=== PATIENT | female | born 1965 | race Caucasian/White ===

== ENCOUNTER 2020-08-04 17:33 | Emergency (ER) | payer SELFPAY ==
[2020-08-04 17:35] VITALS: BP 88/75; PULSE 111; RESP 18; TEMP 36.4; O2SAT 100; BMI 28.3
--- NOTE | 2020-08-04 17:45 | ED_ITS ---
HPI - Skin/Abscess/Foreign Bdy General: Chief complaint: Skin/Abscess/Foreign Body Stated complaint: L FOOT INJURY/INFECTION Time Seen by Provider: 08/04/20 17:35 History of Present Illness: HPI narrative: Patient is a 54-year-old female comes to the ED with possible infection on left foot. Patient says 4 days ago she had a blister on the top of her left foot around the midfoot region. She says she popped it and over the past 4 days her foot has gotten red, warm and swollen. Last night where the blister was on her foot opened up and purulent drainage came out. She rates the pain a 6 out of 10. Denies any history of staph or MRSA infections. Associated symptoms: Deny chills, fever(s), nausea or vomiting Review of Systems Const: Denies: fever(s), chills or fatigue Eyes: Denies: change in vision or eye discomfort ENMT: Denies: throat pain, odynophagia, nasal discharge or nasal congestion Card: Denies: chest pain, palpitations, edema, swelling of feet/ankles, dyspnea on exertion or orthopnea Resp: Denies: dyspnea, productive cough or non-productive cough GI: Denies: abdominal pain, nausea, vomiting, diarrhea, constipation or hematochezia : Denies: flank pain, dysuria or hematuria Musc: Denies: neck pain, back pain or extremity swelling Skin/Breast: Reports: erythema and new lesions; Denies: rash Neuro: Denies: headache(s), numbness in extremities or weakness in extremities Physical Exam Const: COMMON NORMALS: no acute distress, patient oriented x3 and alert GENERAL APPEARANCE: cooperative and comfortable HENMT: COMMON NORMALS: normocephalic HEAD & SCALP: normocephalic MOUTH: Normal oral and palatal mucosa present THROAT: posterior oropharynx normal and uvula midline Eye: COMMON NORMALS: Equal, round and reactive pupils present PUPIL: Yes Equal, round and reactive pupils present Neck/C-Spine: COMMON NORMALS: supple GENERAL: Yes normal visual inspection Resp: COMMON NORMALS: normal respiratory effort, No retractions, No use of accessory muscles and clear to auscultation bilaterally AUSCULTATION: clear to auscultation bilaterally Cardio: COMMON NORMALS: regular rate, regular rhythm, S1 normal heart sound present, S2 normal heart sound present, No gallops present (Cardio), No clicks present (Cardio), No murmurs present (Cardio) and Peripheral pulses 2+ throughout RATE: regular rate RHYTHM: regular rhythm HEART SOUNDS: S1 normal heart sound present and S2 normal heart sound present PERIPHERAL PULSES: Peripheral pulses 2+ throughout GI: COMMON NORMALS: Normal to inspection, nondistended, normoactive bowel sounds present, Soft to palpation, non-tender and no masses PALPATION: Yes Soft to palpation : COMMON NORMALS: Yes no CVA tenderness BLADDER/KIDNEY EXAM: Yes no CVA tenderness Back/Pelvis: COMMON NORMALS: no CVA tenderness Extremity: NARRATIVE EXTREMITY EXAM: Left foot?on the mid dorsal aspect of left foot patient has a small 5 mm ulcer with surrounding erythema and warmth. Left foot also has 1+ pitting edema in it. Lesion is tender to palpation. Findings suggestive of cellulitis GENERAL: Yes edema (Right foot no edema present. Left foot has 1+ pitting edema.) Neuro: COMMON NORMALS: patient oriented x3 and moves all extremities SENSORIUM/ORIENTATION: Yes alert Skin: NARRATIVE SKIN EXAM: Left foot?on the mid dorsal aspect of left foot patient has a small 5 mm ulcer with surrounding erythema and warmth. Left foot also has 1+ pitting edema in it. Lesion is tender to palpation. Findings suggestive of cellulitis GENERAL SKIN EXAM: dry skin Course Vital Signs: Vital signs: Vital Signs Temperature 97.6 F 08/04/20 17:35 Pulse Rate 101 H 08/04/20 18:08 Respiratory Rate 18 08/04/20 18:08 Blood Pressure 104/76 08/04/20 18:08 Pulse Oximetry 99 08/04/20 18:08 MDM - Skin/Abscess/Foreign Bdy MDM Narrative: Medical decision making narrative: Patient is a 54-year-old female comes the ED with lesion on left foot. Exam shows signs of cellulitis on dorsal aspect of mid left foot. Patient will be discharged on Bactrim and told to follow-up with PCP to reevaluate cellulitis in 5 to 7 days. Return to ED precautions given. Patient understood and agreed with plan. Discharge Plan Discharge Patient Disposition: Home Clinical Impression: Cellulitis Qualifiers: Site of cellulitis: extremity Site of cellulitis of extremity: lower extremity Laterality: left Qualified Code(s): L03.116 - Cellulitis of left lower limb Condition: Stable Prescriptions: New Bactrim DS 800-160 mg tablet 1 tab PO BID 7 Days Qty: 14 RF: 0 Discharge Orders: Discharge ED (Routine); Ordered 08/04/20 Ordered By: Luan Godinez Referrals: Cale Zuñiga MD [Primary Care Provider] - Discharge Diet: Regular Discharge Activity: Resume usual activity Patient Instructions: Cellulitis (ED) Activity Restrictions/Additional Instructions: Follow-up with medical provider as directed in about 7 days. Take medications as prescribed. Return to the ER or your medical provider if condition worsens. Please read and understand discharge instructions. If any questions, please ask. Coding Level of Care Code ED Floor Covering Printer for Raúl Fwd Exam Comprehensive
[2020-08-04] MEDS: sulfamethoxazole-trimeth DS 160-800 mg Tablet 1 TAB PO (18:03)
[2020-08-04 18:08] VITALS: BP 104/76; PULSE 101; RESP 18; O2SAT 99
== END 2020-08-04 18:08 | disposition home or self-care (01) ==
PROVIDERS: Emergency Provider Physician Assistant; PCP Family Medicine
DX: L03.116 Cellulitis of left lower limb (principal)
CPT/HCPCS: 12345; 99281; 99283

== ENCOUNTER → 2023-08-02 11:52 | Outpatient (BNVA) | payer SELFPAY | PROVIDERS: PCP Family Medicine; Visit Provider Registered Nurse Neonatal Intensive Care | DX: M54.50 Low back pain, unspecified (principal) | CPT/HCPCS: 81000 ==

== ENCOUNTER 2023-08-19 11:18 | Inpatient (IN) | payer SELFPAY ==
[2023-08-19] VITALS (19 sets, daily range): BP systolic 96–153; BP diastolic 36–79; PULSE 74–102; RESP 16–18; TEMP 36.6–37; O2SAT 96–100; BMI 27.4; BMI 25.7
--- NOTE | 2023-08-19 11:40 | XRR_ITS ---
PROCEDURE INFORMATION: Exam: XR Chest Exam date and time: 08/19/2023 11:44 AM Age: 57 years old Clinical indication: Other: AMS TECHNIQUE: Imaging protocol: Radiologic exam of the chest. Views: 1 view. COMPARISON: No relevant prior studies available. FINDINGS: Lungs: Unremarkable. No consolidation. Pleural spaces: Unremarkable. No pleural effusion. No pneumothorax. Heart/Mediastinum: Unremarkable. No cardiomegaly. Bones/joints: Unremarkable. XR/XR chest 1V portable [id number] IMPRESSION: No acute findings.
--- NOTE | 2023-08-19 11:40 | ECG_ITS ---
[facility] Test Date: 2023-08-19 Pat Name: Ioana Carrizales Department: Room: Gender: Female Assistant General Manager: : 1965 Requested By: Maria C Mcduffie Order Number: [id number] Kaylyn MD: George Singh M.D. Measurements Intervals [place] Rate: 89 P: 61 ID: [id number] QRS: 71 QRSD: 91 T: 34 QT: 295 QTc: 360 Interpretive Statements SINUS RHYTHM ST DEVIATION AND MODERATE T-WAVE ABNORMALITY, CONSIDER ANTEROLATERAL ISCHEMIA [-0.1+ mV T-WAVE IN V3-V6] No previous ECG available for comparison Electronically Signed On 08-19-2023 12:36:50 GLASS SILVERER by George Singh M.D. [id number]
--- NOTE | 2023-08-19 11:44 | CTR_ITS ---
PROCEDURE INFORMATION: Exam: CT Head Without Contrast Exam date and time: 08/19/2023 12:17 PM Age: 57 years old Clinical indication: Altered mental status/memory loss; Additional info: AMS TECHNIQUE: Imaging protocol: Computed tomography of the head without contrast. Radiation optimization: All CT scans at this facility use at least one of these dose optimization techniques: automated exposure control; mA and/or kV adjustment per patient size (includes targeted exams where dose is matched to clinical indication); or iterative reconstruction. REPORTING DATA: Count of CT and Cardiac NM exams in prior 12 months: This patient has received 0 known CTs and 0 known cardiac nuclear medicine studies in the 12 months prior to the current study. COMPARISON: No relevant prior studies available. RADIATION DOSE METRICS: Total DLP (mGy-cm): 999.58 FINDINGS: Brain: No midline shift. Ventricles, cisterns, and sulci are normal. No mass, acute infarct, hemorrhage, or extraaxial fluid collection. Cerebral ventricles: No ventriculomegaly. Paranasal sinuses: Visualized sinuses are unremarkable. No fluid levels. Mastoid air cells: Visualized mastoid air cells are well aerated. Bones/joints: Unremarkable. No acute fracture. Soft tissues: Unremarkable. CT/CT head wo con* [id number] IMPRESSION: No acute intracranial abnormality.
--- NOTE | 2023-08-19 11:44 | CTR_ITS ---
PROCEDURE INFORMATION: Exam: CT Abdomen And Pelvis With Contrast Exam date and time: 08/19/2023 12:21 PM Age: 57 years old Clinical indication: Abdominal pain; Generalized; Prior surgery; Surgery date: 6+ months; Surgery type: Tubal; Additional info: Jaundice/abd pain TECHNIQUE: Imaging protocol: Computed tomography of the abdomen and pelvis with contrast. Radiation optimization: All CT scans at this facility use at least one of these dose optimization techniques: automated exposure control; mA and/or kV adjustment per patient size (includes targeted exams where dose is matched to clinical indication); or iterative reconstruction. Contrast material: OMNI 350; Contrast volume: 100 ml; Contrast route: INTRAVENOUS (IV); REPORTING DATA: Count of CT and Cardiac NM exams in prior 12 months: This patient has received 0 known CTs and 0 known cardiac nuclear medicine studies in the 12 months prior to the current study. COMPARISON: CR XR chest 1V portable [id number] 08/19/2023 11:44 AM RADIATION DOSE METRICS: Total DLP (mGy-cm): 312.08 FINDINGS: Liver: Normal. No mass. Gallbladder and bile ducts: Normal. No calcified stones. No ductal dilation. Pancreas: Normal. No ductal dilation. Spleen: The spleen is borderline enlarged at 12 cm and slightly heterogeneous in appearance. Poorly defined masses could be present within the spleen. Adrenal glands: 4.6 cm left adrenal fat without definite fat. This could be a neoplastic process. Kidneys and ureters: Normal. No hydronephrosis. Stomach and bowel: Unremarkable. No obstruction. No mucosal thickening. Appendix: No evidence of appendicitis. Intraperitoneal space: Moderate free fluid within the pelvis, minimal free fluid adjacent to the liver. Vasculature: Unremarkable. No abdominal aortic aneurysm. Lymph nodes: Mild periaortic adenopathy, the largest lymph node is adjacent to the SMA and measures 18 x 10 mm in size. Urinary bladder: Unremarkable as visualized. Reproductive: Unremarkable as visualized. Bones/joints: Unremarkable. No acute fracture. Soft tissues: Unremarkable. CT/CT abdomen pelvis w con* [id number] IMPRESSION: Numerous findings including a slightly abnormal spleen, left adrenal mass, adenopathy, and ascites all of which could indicate a neoplastic process.
--- NOTE | 2023-08-19 11:45 | ED_ITS ---
HPI - Weakness 2 General: Chief complaint: Weakness Stated complaint: ams Time Seen by Provider: 08/19/23 11:39 Source: patient Mode of arrival: ambulatory Limitations: no limitations History of Present Illness: 57-year-old female states that over the last few weeks she has been having increasing fatigue malaise all some intermittent confusion she has all my questions appropriately here. Patient is extremely jaundiced here her states he is notices over the last 2 weeks she denies any history of any liver issues denies vomiting or diarrhea. She states she is not a an alcoholic. Associated symptoms: Reports confusion; Denies chest pain, chills, fever(s), headache(s), nausea or vomiting Review of Systems 2 Const: Reports: fatigue and malaise; Denies: fever(s), chills or body aches Eyes: Denies: blurry vision or eye discomfort ENMT: Denies: throat pain or dental pain Card: Denies: chest pain Resp: Denies: dyspnea GI: Denies: abdominal pain, nausea, vomiting or diarrhea Musc: Denies: neck pain or back pain Skin/Breast: Denies: rash Neuro: Reports: confusion; Denies: headache(s) Psych: Denies: depression Physical Exam 2 Const: COMMON NORMALS: patient oriented x3 GENERAL APPEARANCE: ill appearing HENMT: COMMON NORMALS: normocephalic and atraumatic HEAD & SCALP: n ormocephalic and atraumatic Eye: COMMON NORMALS: Equal, round and reactive pupils present and EOMs intact bilaterally PUPIL: Yes Equal, round and reactive pupils present OTHER: scleral icterus Neck/C-Spine: COMMON NORMALS: full ROM and supple Chest: COMMONS NORMALS: normal inspection of the chest and normal palpation of entire chest wall Resp: COMMON NORMALS: normal respiratory effort, No retractions, No use of accessory muscles and clear to auscultation bilaterally AUSCULTATION: clear to auscultation bilaterally Cardio: COMMON NORMALS: regular rate, regular rhythm and No murmurs present (Cardio) RATE: regular rate RHYTHM: regular rhythm GI: COMMON NORMALS: Normal to inspection, nondistended, normoactive bowel sounds present, Soft to palpation, non-tender and no masses PALPATION: Yes Soft to palpation Extremity: COMMON NORMALS: normal to inspection and full ROM Neuro: COMMON NORMALS: patient oriented x3, moves all extremities and no focal motor deficits Psych: COMMON NORMALS: mental status grossly normal, Normal thought process present and cooperative THOUGHT PROCESS: Normal thought process present Skin: COMMON NORMALS: no rashes or lesions noted and no wounds NARRATIVE SKIN EXAM: jaundiced GENERAL SKIN EXAM: no rashes or lesions noted Course 2 Vital Signs: Vital signs: Vital Signs Temperature 98.3 F 08/19/23 12:55 Pulse Rate 79 08/19/23 13:14 Respiratory Rate 18 08/19/23 12:50 Blood Pressure 119/51 08/19/23 13:14 Pulse Oximetry 100 08/19/23 13:14 Oxygen Delivery Me thod Room Air 08/19/23 13:14 MDM - Weakness Medical Decision Making Patient presents here with generalized weakness she is found to be severely anemic CT of abdomen showed adrenal mass with lymphadenopathy and ascites with likely a malignancy causing her anemia she has no signs of acute bleeding her rectal exam was normal her blood pressure and vital signs here been normal we will transfuse her spoke to the hospitalist will admit Medical Records I reviewed the patient's medical records. Lab Data I reviewed the patient's lab results. 08/19/23 11:55 08/19/23 11:55 Radiology Impressions Chest X-Ray 08/19/23 11:40 IMPRESSION: No acute findings. Abdomen/Pelvis CT 08/19/23 11:44 IMPRESSION: Numerous findings including a slightly abnormal spleen, left adrenal mass, adenopathy, and ascites all of which could indicate a neoplastic process. Head CT 08/19/23 11:44 IMPRESSION: No acute intracranial abnormality. Laboratory Results WBC 3.51 10^3/uL (3.29-11.43) 08/19/23 11:55 RBC 0.89 10^6/uL (3.85-5.65) L 08/19/23 11:55 Hgb 2.90 g/dL (11.27-16.99) L* 08/19/23 11:55 Hct 10.8 % (36-47) L* 08/19/23 11:55 MCV 121.3 fl (85-98) H 08/19/23 11:55 MCH 32.6 pg (27-33) 08/19/23 11:55 MCHC 26.9 g/dL (30-55) L 08/19/23 11:55 RDW Head Gauge Unit Operator 08/19/23 11:55 Plt Count 11 10^3/cmm (157-399) L* 08/19/23 11:55 MPV 10.0 fL (7.4-10.4) 08/19/23 11:55 Neut % (Auto) 82.8 % 08/19/23 11:55 Lymph % (Auto) 10.3 % 08/19/23 11:55 [place] % (Auto) 4.6 % 08/19/23 11:55 Eos % (Auto) 0.0 % 08/19/23 11:55 Baso % (Auto) 0.0 % 08/19/23 11:55 Neut # (Auto) 2.91 10^3/uL (1.8-7.7) 08/19/23 11:55 Lymph # (Auto) 0.4 10^3/uL (0.8-4.8) L 08/19/23 11:55 [place] # (Auto) 0.2 10^3/uL (0.2-0.9) 08/19/23 11:55 Eos # (Auto) 0.0 10^3/uL (0.0-0.8) 08/19/23 11:55 Baso # (Auto) 0.0 10^3/uL (0.0-0.1) 08/19/23 11:55 Nucleated RBC % (auto) 1.4 % 08/19/23 11:55 Nucleated RBCs # 0.1 /100WBC 08/19/23 11:55 PT 16.70 SECONDS (12.1-14.9) H 08/19/23 11:55 INR 1.30 (0.8-1.2) H 08/19/23 11:55 Specimen Type Arterial 08/19/23 11:43 Sample Site Radial, left 08/19/23 11:43 ABG pH 7.55 (7.35-7.45) H 08/19/23 11:43 ABG pCO2 28.9 mmHg (35-45) L 08/19/23 11:43 ABG pO2 96.8 mmHg (80.0-100.0) 08/19/23 11:43 ABG PO2/FiO2 Ratio 0 08/19/23 11:43 ABG HCO3 25.3 mmol/L (22-26) 08/19/23 11:43 ABG Base Excess 2.2 mmol/L (-2.0-2.0) H 08/19/23 11:43 [place] Test Pos 08/19/23 11:43 Hematocrit 9.1 % (37-47) L 08/19/23 11:43 O2 Delivery Device Room air 08/19/23 11:43 FiO2 21.0 % 08/19/23 11:43 Chemical Dependency Counselor ID [place] 08/19/23 11:43 Sodium 137 mmol/L (136-145) 08/19/23 11:55 Potassium 3.3 mmol/L (3.5-5.1) L 08/19/23 11:55 Chloride 99 mmol/L (98-107) 08/19/23 11:55 Carbon Dioxide 24 mmol/L (22-29) 08/19/23 11:55 Anion Gap 17.3 (5-19) 08/19/23 11:55 BUN 17 mg/dL (6-20) 08/19/23 11:55 Creatinine 0.6 mg/dL (0.5-0.9) 08/19/23 11:55 GFR Calculation 102.3 mL/min (90-130) 08/19/23 11:55 Glucose 105 mg/dL (65-115) 08/19/23 11:55 Calculated Osmolality 286 mOsm/kg (285-295) 08/19/23 11:55 Lactic Acid 3.3 mmol/L (0.5-2.2) H 08/19/23 11:55 Calcium 8.1 mg/dL (8.5-10.5) L 08/19/23 11:55 Total Bilirubin 2.0 mg/dL (0.15-1.2) H 08/19/23 11:55 AST 7 U/L (0-32) 08/19/23 11:55 ALT 8 U/L (0-33) 08/19/23 11:55 Alkaline Phosphatase 140 U/L (35-105) H 08/19/23 11:55 Ammonia 14 umol/L (11-51) 08/19/23 11:55 Total Protein 5.6 g/dL (6.6-8.7) L 08/19/23 11:55 Albumin 3.2 g/dL (3.5-5.2) L 08/19/23 11:55 Globulin 2.4 g/dL (1.3-4.6) 08/19/23 11:55 Lipase 15 U/L (13-60) 08/19/23 11:55 Hepatitis A IgM Ab Non-reactive (Nonreactive) 08/19/23 11:55 Hep Bs Antigen Non-reactive (Nonreactive) 08/19/23 11:55 Hep Bs Antibody < 3.5 (11.5-1000) L 08/19/23 11:55 Hep B Core Total Ab Non-reactive (Nonreactive) 08/19/23 11:55 Hepatitis C Antibody Non-reactive (Nonreactive) 08/19/23 11:55 Blood Type O Positive 08/19/23 12:04 Rho(D) Type Rh positive 08/19/23 12:04 Antibody Screen Negative 08/19/23 12:04 Crossmatch See Detail 08/19/23 12:04 All radiology interpretation(s) finalized by discharge EKG Data EKG 1: I personally reviewed and interpreted this EKG as follows: EKG interpretation date: 08/19/23 EKG interpretation time: 11:55 Interpretation: nsr hr [address] or t wave abnormalities qrs 91 qtc 342 Critical Care Time 2 Critical Care Time: Critical Care Time: Yes Total Critical Care Time: 45 Attestation: The high probability of a clinically significant, sudden or life threatening deterioration of the patient's hematology system(s) required my full and direct attention, intervention and personal management. The critical care time is as shown. This time is in addition to time spent performing any reported procedures but includes the following: [x] Data and vital sign review and interpretation [x] Patient assessment, examination and intervention [x] Documentation [x] Medication orders and management Discharge Plan Discharge Patient Disposition: Admitted As Inpatient Clinical Impression: Anemia Condition: Stable Prescriptions: No Action fluticasone propionate [Flonase Allergy Relief] 50 mcg/actuation spray,suspension 1 spray intranasal DAILY PRN (Reason: nasal congestion) Qty: 16 0RF cephalexin 500 mg tablet 500 mg PO BID 7 Days Qty: 14 0RF Referrals: Cale Zuñiga MD [Primary Care Provider] - Coding Level of Care Code ED Television Service Engineer for g Thomas
[2023-08-19 11:55] LABS: ABG PCO2 28.9 mmHg (35-45); ABG PH Result 7.55 (7.35-7.45); Arterial Blood Gas Hematocrit 9.1 % (37-47); Base Excess ABG 2.2 mmol/L (-2.0-2.0); Blood Gas Allen Test Pos; Blood Gas Operator Identificat MONRO; Blood Gas Sample Site Radial, left; Blood Gas Sample Type Arterial; HCO3 ABG 25.3 mmol/L (22-26); PO2 ABG 96.8 mmHg (80.0-100.0)
[2023-08-19 11:56] LABS: Oxygen Device ROOM AIR; PO2 FiO2 Ratio Arterial Blood 0
[2023-08-19 12:13] LABS: Lymphocytes # 0.4 10^3/uL (0.8-4.8); Lymphocytes % 10.3 %; Mean Corpuscular HGB Conc 26.9 g/dL (30-55); Mean Corpuscular Hemoglobin 32.6 pg (27-33); Mean Corpuscular Volume 121.3 fl (85-98); Monocytes # 0.2 10^3/uL (0.2-0.9); Monocytes % 4.6 %; Neutrophils # 2.91 10^3/uL (1.8-7.7); Neutrophils % 82.8 %; Nucleated Red Blood Cells # 0.1 /100WBC; Nucleated Red Blood Cells % 1.4 %; Red Blood Count 0.89 10^6/uL (3.85-5.65); White Blood Count 3.51 10^3/uL (3.29-11.43)
[2023-08-19 12:15] LABS: Hematocrit 10.8 % (36-47); Platelet Count 11 10^3/cmm (157-399)
[2023-08-19] MEDS: sodium chloride 0.9% 1,000 ML 999 ML IV (12:19)
[2023-08-19 12:26] LABS: Ammonia 14 umol/L (11-51)
[2023-08-19 12:27] LABS: Alanine Aminotransferase 8 U/L (0-33); Albumin Level 3.2 g/dL (3.5-5.2); Alkaline Phosphatase 140 U/L (35-105); Anion Gap 17.3 (5-19); Aspartate Amino Transferase 7 U/L (0-32); Blood Urea Nitrogen 17 mg/dL (6-20); Calcium 8.1 mg/dL (8.5-10.5); Carbon Dioxide 24 mmol/L (22-29); Chloride 99 mmol/L (98-107); Creatinine Clr Calc Pharmacy 94.9282; Globulin 2.4 g/dL (1.3-4.6); Glomerular Filtration Rate 102.3 mL/min (90-130); Glucose 105 mg/dL (65-115); Lactic Sepsis W/Reflex 3.3 mmol/L (0.5-2.2); Lipase 15 U/L (13-60); Osmolality Calculated 286 mOsm/kg (285-295); Potassium 3.3 mmol/L (3.5-5.1); Sodium 137 mmol/L (136-145); Total Protein 5.6 g/dL (6.6-8.7)
[2023-08-19 12:47] LABS: Hepatitis A Antibody IgM Non-Reactive (Nonreactive); Hepatitis B Core AB, Total Non-Reactive (Nonreactive); Hepatitis B Surface AB < 3.5 (11.5-1000); Hepatitis B Surface Antigen Non-Reactive (Nonreactive); Hepatitis C Virus Antibody Non-Reactive (Nonreactive)
--- NOTE | 2023-08-19 13:12 | PC.NURSE ---
NURSE ASSUMED CARE AT 1313
[2023-08-19 13:47] LABS: Reflex Lactate Order REFLEX LACTIC ORDERD
--- NOTE | 2023-08-19 13:59 | P.HP_ITS ---
Providers/Chief Complaint 2 Primary Care Provider: Cale Zuñiga MD Chief Complaint: ams History of Present Illness Ioana Carrizales is a 57 year old female with no significant past medical history who has not seen physician over many years presented to the ER today because of feeling weak and tired more so over the last couple of weeks but getting worse for last few months. As per the spouse patient has been drowsy, having bladder accidents because of weakness, inability to walk for last couple of weeks. Patient's appetite has decreased over the last 1 month. As per patient she has lost around 10 pounds over last few months. Denies having any nausea, vomiting, diarrhea. Denies noticing blood in her bowel or bladder. In the ER she was found to have a hemoglobin of 2.9, platelet of 11,000. She was ordered 4 units of PRBC out of which she received 2 units and 2 units of platelets. On examination patient's heart rate of 83 bpm with blood pressure 136/60 saturating 96% on room air Review of Systems 2 General: Reports: 10 or more systems reviewed and unremarkable except in HPI and below Const: Denies: fever(s), chills, body aches, change in appetite, change in weight, malaise, night sweats, diaphoresis, change in sleep pattern, daytime sleepiness or snoring Eyes: Denies: change in vision, blurry vision, photophobia, eye discomfort or eye discharge ENMT: Denies: throat pain, enlarged tonsils, hoarseness, mouth pain, oral sores, dry mouth, tinnitus, nasal congestion or post nasal drip Card: Denies: chest pain, palpitations, irregular heart rhythm, edema, swelling of feet/ankles, lightheadedness, syncope, pre-syncope, dyspnea on exertion, orthopnea, leg pain with exertion or acrocyanosis Resp: Denies: dyspnea, productive cough, non-productive cough, wheezing, stridor, pain on inspiration, change in phlegm color, hemoptysis or chest congestion GI: Denies: abdominal pain, nausea, vomiting, hematemesis, coffee ground emesis, dysphagia, heartburn, diarrhea, constipation, bloating, GI cramping, change in bowel habits, pain on defecation, hematochezia or melena : Denies: flank pain, dysuria, urinary frequency, urinary urgency, urinary hesitancy, nocturia or hematuria Musc: Denies: neck pain, back pain, extremity pain, joint pain, joint swelling, joint redness, joint stiffness or limited range of motion Neuro: Denies: headache(s), numbness in extremities, weakness in extremities, sensory changes, lack of coordination, difficulty walking, frequent falls, dizziness, vertigo, confusion, Slurred speech present, difficulty communicating thoughts or seizure-like activity Psych: Denies: anxiety, depression, mood swings, panic attacks, hopelessness or irritability Endo: Denies: polyuria, polydipsia, tired all the time, cold intolerance, excessive sweating, flushing or heat intolerance Sanket/Lymph: Denies: easy bruising or easy bleeding All/Imm: Denies: tongue swelling, facial swelling or acute wheezing Medications/Allergies Home Medications Medication Instructions Recorded Confirmed Last Taken Type cephalexin 500 mg tablet 500 mg PO BID 7 days #14 tabs 08/02/23 08/19/23 08/18/23 Rx fluticasone propionate 50 1 spray intranasal DAILY PRN nasal 08/02/23 08/19/23 Unknown Rx mcg/actuation nasal congestion #16 grams spray,suspension (Flonase Allergy Relief) Allergies Allergy/AdvReac Type Severity Reaction Status Date / Time No Known Allergies Allergy Verified 08/19/23 11:30 PFSH Acute 2 PFSH: Medical History (Updated 08/19/23 @ 16:47 by Patrick Haskins MD) Smoker No significant past medical history Surgical History (Updated 08/19/23 @ 16:39 by Patrick Haskins MD) History of carpal tunnel surgery Tubal ligation status Vitals/I&O/Wt Last Vital Signs Temp 98.3 F 08/19/23 12:55 Pulse 79 08/19/23 13:14 Resp 18 08/19/23 12:50 BP 119/51 08/19/23 13:14 Pulse Ox 100 08/19/23 13:14 O2 Del Method Room Air 08/19/23 13:14 08/18/23 08/19/23 08/19/23 22:59 06:59 14:59 Intake Total 350 / 350 Balance 350 / 350 Weight last 48 hrs Weight 70.307 kg Physical Exam 2 Narrative: General: No acute distress, AO x3, weak appearing, tired, severe pallor HEENT: PERRLA, pupils bilaterally equal and reactive Chest: Normal vesicular breath sounds, no added sounds, equal good air entry bilaterally CVS: S1-S2 regular, no murmurs, no tachycardia, no gallops, no rubs Abdomen: Soft, nontender, no organomegaly, bowel sounds present Neuro: No focal deficits, no facial deformity, AO x3, power 5/5 in all limbs Data 08/19/23 11:55 08/19/23 11:55 A&P Assessment and plan (1) Anemia: Severe anemia with hemoglobin down to 2.9. Patient hemodynamically stable without tachycardia. Seems like chronic severe anemia. Patient denies any active bleed. High likelihood of malignancy. Check iron panel including ferritin, vitamin B12, folate, LDH, reticulocyte count, haptoglobin level, GGT, peripheral smear. CT abdomen pelvis appreciated for mild ascites, splenomegaly, left renal mass. Check CEA, CA125. Will transfuse PRBC slowly and gradually to reduce chances of fluid overload as patient seems to be compensated to severe anemia. Already received 2 unit of PRBC. Will transfuse 2 more units of platelets. Repeat CBC and then gradually transfuse further. Check echocardiogram. Target hemoglobin more than 7. Will plan for CT chest for further evaluation of possible malignancy. Can plan for ultrasound-guided paracentesis for diagnostic tap. Patient would benefit from outpatient colonoscopy. Check stool for occult blood. Start on Protonix 40 mg IV daily. Even though patient's saturation is well we will keep patient on 2 L of oxygen supplementation. Depending on the reticulocyte count and iron panel can plan for Procrit. (2) Thrombocytopenia: (3) Hypokalemia: Replace with 40 mg orally. (4) Left adrenal mass: (5) Ascites: (6) Drowsy: Most likely in setting of severe anemia. Denies any use of IV drugs. Check urine drug screen. Ammonia levels normal. CT head done in the ER negative for acute stroke. Plan Check TSH, A1c, lipid panel, hepatitis panel, HIV. CODE STATUS: Patient's and daughter will be the DPOA. Full code. Regular diet Protonix for PUD prophylaxis SCDs for DVT prophylaxis. No medical prophylaxis given thrombocytopenia and severe anemia. Attestations 2 Medical Necessity Statement*: Admission for more than 2 midnights for further management and evaluation of severe anemia, thrombocytopenia with high chances of malignancy Diagnoses Anemia D64.9 Thrombocytopenia D69.6 Hypokalemia E87.6 Left adrenal mass E27.8 Ascites R18.8 Drowsy R40.0
[2023-08-19 14:02] LABS: Reticulocyte % 14.5 % (0.5-2.0)
[2023-08-19 14:03] LABS: Iron 63 ug/dL (37-145); LAB Peripheral Smear Sent for Review; Percent Saturation 31.9 % (20-50); Thyroid Stimulating Hormone 3.62 uIU/mL (0.27-4.20); Total Iron Binding Capacity 197 mcg/dl; Unsaturated Iron Binding 134 ug/dL (112-347); Vitamin B12 896 pg/mL (232-1245)
[2023-08-19 14:15] LABS: Lactate Dehydrogenase 227 U/L (135-214)
[2023-08-19 14:25] LABS: Gamma Glutamyl Transferase 10 U/L (5-36)
[2023-08-19 14:26] LABS: Folate Level 2.5 ng/mL (4.8-37.3)
--- NOTE | 2023-08-19 14:37 | PC.NURSE ---
@units of blood witnessed and cosigned by Marcy Adams RN
[2023-08-19 15:14] LABS: Procalcitonin 0.22 ng/mL (0-0.5)
[2023-08-19 15:59] LABS: Urine Color Yellow (Yellow)
[2023-08-19 16:00] LABS: Add Urine Microscopic? YES; Bilirubin Urine Neg (Negative); Blood Urine Neg (Negative); Glucose Urine UA Norm (Normal); Ketones Urine Negative (Negative); Leukocyte Esterase Urine Negative (Negative); Nitrate Urine Negative (Negative); Protein Urine Neg (Negative); Specific Gravity, Urine 1.005 (1.005-1.030); Sulfosalicylic Acid Urine Negative (Negative); Urine Appearance SL Hazy (CLEAR); Urobilinogen Urine 8 mg/dL (Negative); pH Urine 8 (5-7)
[2023-08-19 16:02] LABS: Add Urine Culture? No; Squamous Epithelial Cell Urine 0-4 /hpf (0-5); WBC Urine 0-4 /hpf (0-5)
--- NOTE | 2023-08-19 16:52 | USCV_ITS ---
Ioana Carrizales Age: 57 Gender: F : 1965 Exam Date: 08/19/2023 19:11 Ordering Phys: Patrick Haskins MD Technologist: PRAKASH Exam Location: [facility] – [place], [place] Indication: jaundice, severe anemia, fatigue, malaise, intermittent confusion. No history of cardiac intervention per patient. BP: 104 / 52 HR: 77 Rhythm: Sinus Technical Quality: Good MEASUREMENTS (Male / Female) Normal Values 2D ECHO LV Diastolic Diameter PLAX 5.0 cm 4.2 - 5.9 / 3.9 - 5.3 cm LV Systolic Diameter PLAX 3.2 cm IVS Diastolic Thickness 1.1 cm 0.6 - 1.0 / 0.6 - 0.9 cm IVS Systolic Thickness 1.5 cm LVPW Diastolic Thickness 0.9 cm 0.6 - 1.0 / 0.6 - 0.9 cm LVPW Systolic Thickness 1.4 cm LVOT Diameter 1.8 cm LV Ejection Fraction 2D Teich 66.0 % LV Ejection Fraction MOD 2C 71.3 % LV Ejection Fraction 2C AL 71.4 % LA Diameter 4.4 cm LA Width 4.9 cm LA Height 5.8 cm RA Width 3.2 cm RA Height 4.5 cm Aorta at Sinotubular Diameter 2.5 cm IVC Diameter 1.7 cm M-MODE Aortic Annulus Diameter 2.2 cm LA Ao Ratio MM 2.0 MV E Point Septal Separation 0.6 cm DOPPLER AV Peak Velocity 188.0 cm/s LVOT Peak Velocity 99.0 cm/s AV Area Cont Eq vti 1.5 cm squared AV Area Cont Eq pk 1.4 cm squared MV Peak Velocity 137.0 cm/s MV Area PHT 3.1 cm squared Mitral E to A Ratio 0.9 MV E' Velocity 60.0 cm/s Mitral E to MV E' Ratio 9.4 Mitral E to LV E' Lateral Ratio 8.0 Mitral E to LV E' Septal Ratio 11.2 TR Peak Velocity 242.0 cm/s TR Peak Gradient 23.4 mmHg TV Peak E Velocity 65.0 cm/s Right Atrial Pressure 10.0 mmHg Pulmonary Artery Systolic Pressu 33.4 mmHg PV Peak Velocity 119.0 cm/s RV Acceleration Time 0.1 s RV Ejection Time 0.4 s RV AcT/ET 0.3 FINDINGS Left Ventricle Left ventricle is normal in size. LV systolic function is normal with EF of 55 to 60%. No regional wall motion abnormalities are seen. Right Ventricle Normal in size and function Right Atrium normal in size Left Atrium Dilated Mitral Valve Structurally normal mitral valve. Aortic Valve Aortic valve is thickened. Echogenic structure possibly attached to the aortic valve. No significant stenosis or regurgitation Tricuspid Valve Mild tricuspid regurgitation Pulmonic Valve Not well visualized Pericardium Normal Aorta Normla in size IVC Appears to be normal CONCLUSIONS LV systolic function is normal with EF of 55-60% Left atrial dilation Possible echogenic structure possibly attached to aortic valve. Clinical correlation/ further imaging needed Mild tricuspid regurgitation No comparison studies are available. George Singh MD (Electronically Signed) Final Date: 20 August 2023 15:39 S
[2023-08-19] MEDS: epoetin alfa 1000 Unit/0.05 mL (non-esrd) 20000 UNIT SUBCUT (17:37)
[2023-08-19] MEDS: pantoprazole 40 mg SDV IVP (17:38)
[2023-08-19] MEDS: folic acid 1 MG, multivitamin inj 10 ML, thiamine 100 MG in sodium chloride 0.9% 1,000 ML 252.8 MG IV (17:41)
[2023-08-19] MEDS: folic acid 1 mg Tablet PO (17:45)
[2023-08-19] MEDS: potassium chloride ER 20 mEq Tablet 40 MEQ PO (17:45)
--- NOTE | 2023-08-19 18:35 | PC.NURSE ---
pts tar incomplete from er transfer, this rn charted vs 1300 on wrong transfusion
[2023-08-19 21:26] LABS: Eosinophils % 0.3 %; Lymphocytes # 0.2 10^3/uL (0.8-4.8); Lymphocytes % 7.5 %; Mean Corpuscular HGB Conc 30.8 g/dL (30-55); Mean Corpuscular Hemoglobin 30.6 pg (27-33); Mean Corpuscular Volume 99.4 fl (85-98); Monocytes # 0.1 10^3/uL (0.2-0.9); Monocytes % 4.4 %; Neutrophils # 2.72 10^3/uL (1.8-7.7); Neutrophils % 85.6 %; Nucleated Red Blood Cells % 1.3 %; Red Blood Count 1.73 10^6/uL (3.85-5.65); Red Cell Distribution Width 22.5 % (12.1-15.1); White Blood Count 3.18 10^3/uL (3.29-11.43)
[2023-08-19 21:42] LABS: Hematocrit 17.2 % (36-47); Platelet Count 23 10^3/cmm (157-399)
[2023-08-19 21:44] LABS: Lactic Acid level (Lactate) 1.1 mmol/L (0.5-2.2)
[2023-08-19 22:15] LABS: HIV 1 & 2 Antibody Non-Reactive (Non-Reactiv); HIV 1 & 2 Antigen Non-Reactive (Non-Reactiv)
[2023-08-19 22:31] LABS: Carcinoembryonic Antigen 5.5 ng/mL (0.0-4.7); Tumor Marker Alpha Fetoprotein 1.8 ng/mL (0-8.3)
[2023-08-19 23:40] LABS: CA 125 38.7 U/mL (0-35)
[2023-08-20] VITALS (27 sets, daily range): BP systolic 90–121; BP diastolic 43–68; PULSE 68–94; RESP 14–18; TEMP 36.6–37.8; O2SAT 96–100
[2023-08-20 05:56] LABS: Eosinophils % 0.3 %; Lymphocytes # 0.2 10^3/uL (0.8-4.8); Lymphocytes % 6.9 %; Mean Corpuscular HGB Conc 29.9 g/dL (30-55); Mean Corpuscular Hemoglobin 30.5 pg (27-33); Mean Corpuscular Volume 101.8 fl (85-98); Mean Platelet Volume 10.7 fL (7.4-10.4); Monocytes # 0.1 10^3/uL (0.2-0.9); Monocytes % 4.6 %; Neutrophils # 2.61 10^3/uL (1.8-7.7); Neutrophils % 85.6 %; Red Blood Count 1.64 10^6/uL (3.85-5.65); Red Cell Distribution Width 23.8 % (12.1-15.1); White Blood Count 3.05 10^3/uL (3.29-11.43)
[2023-08-20 06:03] LABS: Hematocrit 16.7 % (36-47); Platelet Count 11 10^3/cmm (157-399)
[2023-08-20 06:12] LABS: Alanine Aminotransferase 6 U/L (0-33); Albumin Level 2.8 g/dL (3.5-5.2); Alkaline Phosphatase 127 U/L (35-105); Anion Gap 13.7 (5-19); Aspartate Amino Transferase 7 U/L (0-32); Blood Urea Nitrogen 13 mg/dL (6-20); Calcium 7.5 mg/dL (8.5-10.5); Carbon Dioxide 22 mmol/L (22-29); Chloride 103 mmol/L (98-107); Globulin 2.1 g/dL (1.3-4.6); Glomerular Filtration Rate 126.3 mL/min (90-130); Glucose 106 mg/dL (65-115); Magnesium 2.3 mg/dL (1.7-2.3); Osmolality Calculated 281 mOsm/kg (285-295); Phosphorus 1.8 mg/dL (2.5-4.5); Potassium 3.7 mmol/L (3.5-5.1); Sodium 135 mmol/L (136-145); Total Bilirubin 1.9 mg/dL (0.15-1.2); Total Protein 4.9 g/dL (6.6-8.7)
[2023-08-20 06:13] LABS: Chol HDL Ratio 6.67 mg/dL (0.0-4.40); Cholesterol 120 mg/dL (0-200); HDL Cholesterol 18 mg/dL (60-100); LDL Cholesterol Calculated 75 mg/dL (50-129); LDL HDL Ratio 4.17 RATIO (0.00-3.22); Triglycerides 134 mg/dL (0-150)
[2023-08-20 07:22] LABS: Estmated Average Glucose 88; Hemoglobin A1C 4.7 % (4.0-6.0)
[2023-08-20] MEDS: folic acid 1 mg Tablet PO ×2 (08:53→18:34)
--- NOTE | 2023-08-20 09:07 | PC.CHAP ---
Pastoral Care Encounter/Spiritual Assessment Type of Contact [] Declined veterinary x ray operator visit [] Patient/Family/Request visit [] Outpatient visit [] Follow-up visit [] Physician referral [] Code/Alert [] Routine visit [] Staff referral [] Actively dying [] Patient sleeping [] Family support [] [] Out of room [] Palliative care [] [x] Receiving care in room [] Pre-surgical visit [] Trauma [] Long length of stay [] ICU visit [] Other: Relational/Emotional Strength [] Patient feels connected with others/family/visitors/staff [] Distress [] Loneliness/isolation [] Abandonment Spirituality of Patient [] Person of Lea [] Attends Latter-Day of their Lea [] Believes in Prayer [] Reads Bible or Latter-Day materials [] There are Spiritual issues to be addressed Search Marketing Specialist Interventions [] Prayer [] Active listening [] Non-anxious presence [] Spiritual/emotional support [] Crisis/trauma care [] Spiritual counseling [] Bereavement support [] Provided bereavement packet [] Provided Bible/devotional materials [] Provided toy/stuffed animal, coloring book to patient or family member [] Provided Communion [] Anointing/[place] [] Salvation [] Completed spiritual assessment [] Other: Impact on Illness or Injury [] Angry [] Fearful [] Anxious [] Often cries [] Exhaustion [] Unable to work [] Unable to attend pentecostal [] Unable to walk/stand [] Unable to read [] Unable to drive [] Unable to eat/drink [] Unable to sleep [] Unable to be with family [] Patient intubated [] Other: Summary Time spent with patient
[2023-08-20] MEDS: sodium chloride 0.9% 100 mL Bag 50 ML IV (11:11)
--- NOTE | 2023-08-20 12:46 | P.PN_ITS ---
Subjective 2 Subjective: No acute events overnight. Overall received 2 units of PRBC and platelets yesterday. Blood work appreciated. On examination patient laying in bed, sleeping with wakes up to verbal stimulus. Family at bedside. Vitals/I&O/Wt Last Vital Signs Temp 98.2 F 08/20/23 11:39 Pulse 82 08/20/23 11:39 Resp 16 08/20/23 11:39 BP 90/43 08/20/23 11:39 Pulse Ox 100 08/20/23 11:39 O2 Del Method Nasal Cannula 08/20/23 11:04 O2 Flow Rate 2 08/19/23 20:35 08/19/23 08/20/23 08/20/23 22:59 06:59 14:59 Intake Total 1464.2 / 2214.2 0 / 2214.2 540 / 540 Output Total 600 / 600 Balance 864.2 / 1614.2 0 / 1614.2 540 / 540 Weight last 48 hrs Weight 67.812 kg Weight 67.358 kg Weight 65.998 kg Weight 70.307 kg Physical Exam 2 Narrative: General: No acute distress, AO x3, weak appearing, tired, severe pallor HEENT: PERRLA, pupils bilaterally equal and reactive Chest: Normal vesicular breath sounds, no added sounds, equal good air entry bilaterally CVS: S1-S2 regular, no murmurs, no tachycardia, no gallops, no rubs Abdomen: Soft, nontender, no organomegaly, bowel sounds present Neuro: No focal deficits, no facial deformity, AO x3, power 5/5 in all limbs Data 08/20/23 05:30 08/20/23 05:30 A&P Assessment and plan (1) Anemia: Severe anemia with hemoglobin down to 2.9. Patient hemodynamically stable without tachycardia. Seems like chronic severe anemia. Patient denies any active bleed. High likelihood of malignancy. Solid tumor versus lymphoproliferative disease with possibility of MDS versus aplastic anemia though both processes going on simultaneously cannot be ruled out. Iron panel normal, vitamin B12 normal, low folate level, elevated LDH, reticulocyte count, haptoglobin levels. Hemolytic anemia ruled out. CEA CA125 elevated. Discussed in detail with surgery and oncology. Patient most likely needs a bone marrow biopsy which will be scheduled as an outpatient. Patient will be seen earlier next week by both oncology and surgery for further workup and possibility of colonoscopy. Patient is agreeable. Hemoglobin up to 5 today. Transfuse to monitor PRBC and 2 more units of platelet. Repeat CBC after completion of transfusion today. Monitor hemoglobin. No fluid available for diagnostic abdominal tap. Continue with IV Protonix. (2) Thrombocytopenia: (3) Hypokalemia: Resolved. (4) Left adrenal mass: (5) Ascites: Not drainable on abdominal ultrasound (6) Drowsy: Most likely in setting of severe anemia. Denies any use of IV drugs. Check urine drug screen. Ammonia levels normal. CT head done in the ER negative for acute stroke. (7) Protein-energy malnutrition: Plan Appreciate TSH, A1c, lipid panel, hepatitis panel, HIV. Protein energy malnutrition. Start on protein shakes as possible. CODE STATUS: Patient's and daughter will be the DPOA. Full code. Regular diet Protonix for PUD prophylaxis SCDs for DVT prophylaxis. No medical prophylaxis given thrombocytopenia and severe anemia. Attestations 2 Medical Necessity Statement*: Requires further hospitalization for management of severe anemia requiring further blood transfusion, thrombocytopenia in setting of high chances of malignancy Diagnoses Anemia D64.9 Thrombocytopenia D69.6 Hypokalemia E87.6 Left adrenal mass E27.8 Ascites R18.8 Drowsy R40.0 Protein-energy malnutrition E46
[2023-08-20 14:32] LABS: Basophils % 0.3 %; Lymphocytes # 0.2 10^3/uL (0.8-4.8); Lymphocytes % 6.5 %; Mean Corpuscular HGB Conc 31.8 g/dL (30-55); Mean Corpuscular Hemoglobin 31.3 pg (27-33); Mean Corpuscular Volume 98.2 fl (85-98); Mean Platelet Volume 11.9 fL (7.4-10.4); Monocytes # 0.2 10^3/uL (0.2-0.9); Monocytes % 5.9 %; Neutrophils % 85.8 %; Nucleated Red Blood Cells # 0.1 /100WBC; Nucleated Red Blood Cells % 1.5 %; Red Blood Count 2.24 10^6/uL (3.85-5.65); Red Cell Distribution Width 20.1 % (12.1-15.1); White Blood Count 3.38 10^3/uL (3.29-11.43)
[2023-08-20 15:06] LABS: Slide Review Slide Review Perform
[2023-08-20 15:07] LABS: Platelet Count 9 10^3/cmm (157-399)
--- NOTE | 2023-08-20 16:13 | US_ITS ---
WS: [id number] INDICATION: Ascites TECHNIQUE: Ultrasound for paracentesis FINDINGS: Four-quadrant ultrasound. No visualized ascites. No fluid accessible for paracentesis. Rece nt CT demonstrated small amount of free fluid or ascites deep in the pelvis. IMPRESSION: No visualized ascites
[2023-08-20] MEDS: pantoprazole 40 mg SDV IVP (18:32)
[2023-08-20] MEDS: acetaminophen 325 mg Tablet 650 MG PO (21:25)
[2023-08-21] VITALS (8 sets, daily range): BP systolic 104–125; BP diastolic 50–65; PULSE 72–87; RESP 16–18; TEMP 36.5–36.7; O2SAT 95–99
[2023-08-21 01:28] LABS: Lymphocytes # 0.2 10^3/uL (0.8-4.8); Lymphocytes % 6.9 %; Mean Corpuscular HGB Conc 32.8 g/dL (30-55); Mean Corpuscular Hemoglobin 30.9 pg (27-33); Mean Corpuscular Volume 94.3 fl (85-98); Mean Platelet Volume 10.6 fL (7.4-10.4); Monocytes # 0.2 10^3/uL (0.2-0.9); Monocytes % 4.9 %; Neutrophils % 85.9 %; Nucleated Red Blood Cells % 0.9 %; Red Blood Count 2.65 10^6/uL (3.85-5.65); Red Cell Distribution Width 18.8 % (12.1-15.1); White Blood Count 3.49 10^3/uL (3.29-11.43)
[2023-08-21 01:31] LABS: Slide Review Slide Review Perform
[2023-08-21 01:35] LABS: Platelet Count 14 10^3/cmm (157-399)
[2023-08-21] MEDS: folic acid 1 mg Tablet PO (09:53)
--- NOTE | 2023-08-21 12:02 | PM.DCS ---
Discharge Providers Date of Admission: 08/19/23 13:21 Date of Discharge: August 21, 2023 Attending Provider at Admission: Patrick Haskins MD Attending Provider at Discharge: Patrick Haskins MD Primary Care Provider: Cale Zuñiga MD Diagnoses at Discharge Discharge Diagnosis (1) Anemia: Status: Acute (2) Thrombocytopenia: Status: Acute (3) Hypokalemia: Status: Acute (4) Left adrenal mass: Status: Acute (5) Ascites: Status: Acute (6) Drowsy: Status: Acute (7) Protein-energy malnutrition: Status: Acute Reason for Visit Reason for Visit: [facility] Hospital Course Hospital Course Ioana Carrizales is a 57 year old female with no significant past medical history who has not seen physician over many years presented to the ER today because of feeling weak and tired more so over the last couple of weeks but getting worse for last few months. As per the spouse patient has been drowsy, having bladder accidents because of weakness, inability to walk for last couple of weeks. Patient's appetite has decreased over the last 1 month. As per patient she has lost around 10 pounds over last few months. Denies having any nausea, vomiting, diarrhea. Denies noticing blood in her bowel or bladder. In the ER she was found to have a hemoglobin of 2.9, platelet of 11,000. She was ordered 4 units of PRBC out of which she received 2 units and 2 units of platelets. On examination patient's heart rate of 83 bpm with blood pressure 136/60 saturating 96% on room air. Patient was admitted to the hospital further evaluation and management of severe anemia and thrombocytopenia. Blood work was done for further evaluation of anemia. Patient was found to have elevated reticulocyte count, LDH, haptoglobin with low folic acid levels. CT abdomen pelvis was done on admission which was concerning for periaortic lymph nodes, mild ascites, mild splenomegaly and left adrenal mass. Abdominal ultrasound was done which ruled out enough fluid for diagnostic paracentesis. During hospitalization overall she received 5 units of PRBC, 4 units of platelet and 1 unit of FFP. She responded well to the treatment and her hemoglobin appropriately alexey to 8. Patient showed pancytopenia. Care was discussed in detail with outpatient oncologist who advised patient to get bone marrow biopsy with hide concerns for lymphoproliferative disorder such as MDS. Patient is being discharged in hemodynamically stable condition on oral folic acid tablets with advised to follow-up with oncology at the earliest for set up of bone marrow biopsy, surgeon for possible colonoscopy and with a primary care provider within next 1 week. Patient should have a repeat CBC done in 1 week. Physical Exam Narrative: General: No acute distress, AO x3, chronically sick appearing, pallor present, more awake and alert today HEENT: PERRLA, pupils bilaterally equal and reactive Chest: Normal vesicular breath sounds, no added sounds, equal good air entry bilaterally CVS: S1-S2 regular, no murmurs, no tachycardia, no gallops, no rubs Abdomen: Soft, nontender, no organomegaly, bowel sounds present Neuro: No focal deficits, no facial deformity, AO x3, power 5/5 in all limbs Discharge Data Studies Completed and Pending Completed Studies During Hospitalization Category Date Time Status CT abdomen pelvis w con* [id number] Stat Cat Scan 08/19/23 11:[address] head wo con* [id number] Stat Cat Scan 08/19/23 11:44 Completed XR chest 1V portable [id number] Stat Exams 08/19/23 11:40 Completed CV. echo complete* [id number] Routine Ultrasound 08/19/23 16:52 Completed US abdomen lmt fluid [id number] Routine Ultrasound 08/20/23 16:13 Completed Radiology Impressions Chest X-Ray 08/19/23 11:40 IMPRESSION: No acute findings. Abdomen/Pelvis CT 08/19/23 11:44 IMPRESSION: Numerous findings including a slightly abnormal spleen, left adrenal mass, adenopathy, and ascites all of which could indicate a neoplastic process. Head CT 08/19/23 11:44 IMPRESSION: No acute intracranial abnormality. Laboratory Results WBC 3.49 10^3/uL (3.29-11.43) 08/21/23 01:15 RBC 2.65 10^6/uL (3.85-5.65) L 08/21/23 01:15 Hgb 8.20 g/dL (11.27-16.99) L 08/21/23 01:15 Hct 25.0 % (36-47) L 08/21/23 01:15 MCV 94.3 fl (85-98) 08/21/23 01:15 MCH 30.9 pg (27-33) 08/21/23 01:15 MCHC 32.8 g/dL (30-55) 08/21/23 01:15 RDW 18.8 % (12.1-15.1) H 08/21/23 01:15 Plt Count 14 10^3/cmm (157-399) L* D 08/21/23 01:15 MPV 10.6 fL (7.4-10.4) H 08/21/23 01:15 Neut % (Auto) 85.9 % 08/21/23 01:15 Lymph % (Auto) 6.9 % 08/21/23 01:15 Brown % (Auto) 4.9 % 08/21/23 01:15 Eos % (Auto) 0.0 % 08/21/23 01:15 Baso % (Auto) 0.0 % 08/21/23 01:15 Reticulocyte % (Auto) 14.5 % (0.5-2.0) H 08/19/23 11:55 Neut # (Auto) 3.00 10^3/uL (1.8-7.7) 08/21/23 01:15 Lymph # (Auto) 0.2 10^3/uL (0.8-4.8) L 08/21/23 01:15 Brown # (Auto) 0.2 10^3/uL (0.2-0.9) 08/21/23 01:15 Eos # (Auto) 0.0 10^3/uL (0.0-0.8) 08/21/23 01:15 Baso # (Auto) 0.0 10^3/uL (0.0-0.1) 08/21/23 01:15 Nucleated RBC % (auto) 0.9 % 08/21/23 01:15 Nucleated RBCs # 0.0 /100WBC 08/21/23 01:15 Peripher Smr Path Cons Sent for review 08/19/23 11:55 Haptoglobin 288.0 mg/L (30-200) H 08/19/23 11:55 PT 16.70 SECONDS (12.1-14.9) H 08/19/23 11:55 INR 1.30 (0.8-1.2) H 08/19/23 11:55 Specimen Type Arterial 08/19/23 11:43 Sample Site Radial, left 08/19/23 11:43 ABG pH 7.55 (7.35-7.45) H 08/19/23 11:43 ABG pCO2 28.9 mmHg (35-45) L 08/19/23 11:43 ABG pO2 96.8 mmHg (80.0-100.0) 08/19/23 11:43 ABG PO2/FiO2 Ratio 0 08/19/23 11:43 ABG HCO3 25.3 mmol/L (22-26) 08/19/23 11:43 ABG Base Excess 2.2 mmol/L (-2.0-2.0) H 08/19/23 11:43 Aquiles Test Pos 08/19/23 11:43 Hematocrit 9.1 % (37-47) L 08/19/23 11:43 O2 Delivery Device Room air 08/19/23 11:43 FiO2 21.0 % 08/19/23 11:43 Plastic Panel Installer ID Javanro 08/19/23 11:43 Sodium 135 mmol/L (136-145) L 08/20/23 05:30 Potassium 3.7 mmol/L (3.5-5.1) 08/20/23 05:30 Chloride 103 mmol/L (98-107) 08/20/23 05:30 Carbon Dioxide 22 mmol/L (22-29) 08/20/23 05:30 Anion Gap 13.7 (5-19) 08/20/23 05:30 BUN 13 mg/dL (6-20) 08/20/23 05:30 Creatinine 0.5 mg/dL (0.5-0.9) 08/20/23 05:30 GFR Calculation 126.3 mL/min (90-130) 08/20/23 05:30 Glucose 106 mg/dL (65-115) 08/20/23 05:30 Estimat Average Glucose 88 08/20/23 05:30 Hemoglobin A1c 4.7 % (4.0-6.0) 08/20/23 05:30 Calculated Osmolality 281 mOsm/kg (285-295) L 08/20/23 05:30 Lactic Acid 3.3 mmol/L (0.5-2.2) H 08/19/23 11:55 Lactic Acid (Sepsis) 1.1 mmol/L (0.5-2.2) 08/19/23 21:15 Calcium 7.5 mg/dL (8.5-10.5) L 08/20/23 05:30 Phosphorus 1.8 mg/dL (2.5-4.5) L 08/20/23 05:30 Magnesium 2.3 mg/dL (1.7-2.3) 08/20/23 05:30 Iron 63 ug/dL (37-145) 08/19/23 11:55 TIBC 197 mcg/dl 08/19/23 11:55 % Saturation 31.9 % (20-50) 08/19/23 11:55 Unsat Iron Binding 134 ug/dL (112-347) 08/19/23 11:55 Total Bilirubin 1.9 mg/dL (0.15-1.2) H 08/20/23 05:30 GGT 10 U/L (5-36) 08/19/23 11:55 AST 7 U/L (0-32) 08/20/23 05:30 ALT 6 U/L (0-33) 08/20/23 05:30 Alkaline Phosphatase 127 U/L (35-105) H 08/20/23 05:30 Ammonia 14 umol/L (11-51) 08/19/23 11:55 Lactate Dehydrogenase 227 U/L (135-214) H 08/19/23 11:55 Total Protein 4.9 g/dL (6.6-8.7) L 08/20/23 05:30 Albumin 2.8 g/dL (3.5-5.2) L 08/20/23 05:30 Globulin 2.1 g/dL (1.3-4.6) 08/20/23 05:30 Triglycerides 134 mg/dL (0-150) 08/20/23 05:30 Cholesterol 120 mg/dL (0-200) 08/20/23 05:30 LDL Cholesterol, Calc 75 mg/dL (50-129) 08/20/23 05:30 HDL Cholesterol 18 mg/dL (60-100) L 08/20/23 05:30 LDL/HDL Ratio 4.17 RATIO (0.00-3.22) H 08/20/23 05:30 Cholesterol/HDL Ratio 6.67 mg/dL (0.0-4.40) H 08/20/23 05:30 Lipase 15 U/L (13-60) 08/19/23 11:55 Tumor Marker AFP 1.8 ng/mL (0-8.3) 08/19/23 21:15 Carcinoembryonic Ag 5.5 ng/mL (0.0-4.7) H 08/19/23 21:15 CA 125 Antigen 38.7 U/mL (0-35) H 08/19/23 21:15 Vitamin B12 896 pg/mL (232-1245) 08/19/23 11:55 Folate 7.0 ng/mL (4.8-37.3) 08/20/23 05:30 Procalcitonin 0.22 ng/mL (0-0.5) 08/19/23 11:55 TSH 3.62 uIU/mL (0.27-4.20) 08/19/23 11:55 Urine Color Yellow (Yellow) 08/19/23 15:20 Urine Appearance Sl hazy (CLEAR) A 08/19/23 15:20 Urine pH 8 (5-7) H 08/19/23 15:20 Ur Specific Kingsley 1.005 (1.005-1.030) 08/19/23 15:20 Urine Protein Neg (Negative) 08/19/23 15:20 Urine Glucose (UA) Norm (Normal) 08/19/23 15:20 Urine Ketones Negative (Negative) 08/19/23 15:20 Urine Blood Neg (Negative) 08/19/23 15:20 Urine Nitrate Negative (Negative) 08/19/23 15:20 Urine Bilirubin Neg (Negative) 08/19/23 15:20 Prot Sulfosalicylic Acd Negative (Negative) 08/19/23 15:20 Urine Urobilinogen 8 mg/dL (Negative) H 08/19/23 15:20 Ur Leukocyte Esterase Negative (Negative) 08/19/23 15:20 Urine RBC None /hpf (0-2) 08/19/23 15:20 Urine WBC 0-4 /hpf (0-5) H 08/19/23 15:20 Ur Squamous Epith Cells 0-4 /hpf (0-5) H 08/19/23 15:20 Amorphous Sediment Not Reportable 08/19/23 15:20 Urine Bacteria None /hpf (NONE) 08/19/23 15:20 Urine Mucus None /hpf 08/19/23 15:20 Hepatitis A IgM Ab Non-reactive (Nonreactive) 08/19/23 11:55 Hep Bs Antigen Non-reactive (Nonreactive) 08/19/23 11:55 Hep Bs Antibody < 3.5 (11.5-1000) L 08/19/23 11:55 Hep B Core Total Ab Non-reactive (Nonreactive) 08/19/23 11:55 Hepatitis C Antibody Non-reactive (Nonreactive) 08/19/23 11:55 HIV 1&2 Ab & HIV 1 Ag Non-reactive (Non-Reactiv) 08/19/23 21:15 HIV 1&2 Antibody Non-reactive (Non-Reactiv) 08/19/23 21:15 Blood Type O Positive 08/19/23 12:04 Rho(D) Type Rh positive 08/19/23 12:04 Antibody Screen Negative 08/19/23 12:04 Crossmatch See Detail 08/19/23 12:04 Vitals Last Vital Signs Temp 98.0 F 08/21/23 11:34 Pulse 82 08/21/23 11:34 Resp 16 08/21/23 11:34 BP 113/65 08/21/23 11:34 Pulse Ox 95 08/21/23 11:34 O2 Del Method Room Air 08/21/23 11:34 O2 Flow Rate 2 08/19/23 20:35 Discharge Plan Discharge Patient Disposition: Home Condition: Stable Prescriptions: New folic acid 1 mg Tablet 1 mg PO BID 30 Days Qty: 60 0RF multivitamin with iron [Daily Multiple Vitamins/Iron] Tablet 1 tab PO DAILY Qty: 30 0RF Continued fluticasone propionate [Flonase Allergy Relief] 50 mcg/actuation spray,suspension 1 spray intranasal DAILY PRN (Reason: nasal congestion) Qty: 16 0RF Discontinued cephalexin 500 mg tablet 500 mg PO BID 7 Days Qty: 14 0RF Discharge Orders: Discharge Order (Routine); Ordered 08/21/23 Ordered By: Patrick Haskins Referrals: Robinson Mcallister MD [Physician] - 08/30/23 8:20 am Cale Zuñiga MD [Primary Care Provider] - 08/27/23 1:30 pm Juanjose Kam MD [Hospitalist] - (We have notified your physician's clinic of the need for a follow-up appointment to be scheduled. If you have not heard from them within the next 2 business days, please call them directly. ) Discharge Diet: Regular Discharge Activity: Resume usual activity and Increase activity as tolerated Patient Instructions: Opioid Safety Activity Restrictions/Additional Instructions: Please follow-up with oncology at the earliest for set up of bone marrow biopsy and further evaluation of possible malignancy. Please follow-up with surgery on August 30 for possible colonoscopy. Please follow-up with a primary care provider on August 27 for a repeat CBC. Discharge Attestations Time Spent in Discharge Care*: greater than 30 min Specific Discharge Activities: educating patient, educating and/or supporting family/caregiver, discussing with pcp/other providers, discussing with bilingual case manager/social workers/dc planners, documenting/other paperwork and evaluating patient/reviewing data Status at Discharge: Cognitive status at discharge: cognitively intact, Behavioral status at discharge: cooperative, Functional status at discharge: other assisted ambulation, Overall status at discharge: patient is progressing back to baseline Quality Metrics Clinical Quality Measures [ No reported AMI, CVA or VTE this stay] Coding Level of Care Code 04499 Total time (in minutes) for Discharge: 60 Diagnoses Anemia D64.9 Thrombocytopenia D69.6 Hypokalemia E87.6 Left adrenal mass E27.8 Ascites R18.8 Drowsy R40.0 Protein-energy malnutrition E46
--- NOTE | 2023-08-21 13:42 | PC.NURSE ---
Discussed discharge, new medications, continued and discontinued medications. Discussed all follow up appointments with patient and family as well. Patient verbalized understanding.
== END 2023-08-21 14:25 | disposition home or self-care (01) | DRG 812 ==
LOC: ER 13:50 → MEDSURG 16:00
PROVIDERS: Admitting Provider Student in an Organized Health Care Education/Training Program; Emergency Provider Emergency Medicine; PCP Family Medicine; Visit Provider Student in an Organized Health Care Education/Training Program
DX: D53.9 Nutritional anemia, unspecified (principal); R18.8 Other ascites; E46 Unspecified protein-calorie malnutrition; R17 Unspecified jaundice; D69.6 Thrombocytopenia, unspecified; E27.8 Other specified disorders of adrenal gland; R16.1 Splenomegaly, not elsewhere classified; R59.1 Generalized enlarged lymph nodes; E87.6 Hypokalemia; Z87.891 Personal history of nicotine dependence
CPT/HCPCS: 36415; 36430; 36600; 70450; 71045; 74177; 76705; 80053; 80061; 80503; 81001; 82105; 82140; 82378; 82607; 82746; 82803; 82977; 83010; 83036; 83540; 83550; 83605; 83615; 83690; 83735; 84100; 84145; 84443; 85025; 85045; 85610; 86304; 86705; 86706; 86709; 86803; 86850; 86900; 86920; 86927; 87340; 87806; 93005; 93306; 96372; 99285; C9113; J0885; J3411; J3490; J7030; P9016; P9017; P9035; Q9967